=== PATIENT | female | born 1935 | race Caucasian/White ===

== ENCOUNTER → 2016-10-27 | Day surgery (SDC) | payer MEDICARE, OTHER ==
[~2016-10-27] VITALS: Ht 160 cm; Wt 56.8 kg
[~2016-10-27] MED LIST: ACETAMINOPHEN 1000 MG/100 ML VIAL IV ONE; ADVA100A INH; ALPR0.5T3 PO; BENEPOW8 PO; CHLORHEXIDINE GLUCONATE 2 % 1 PACK (2 CLOTHS) TOPICAL PRN; CLON0.1T PO; CRAN500C2 PO; DO NOT ADM ANY ANTICOAGULANT DRUGS PRN; EZET1TAB8 PO; FOLI400T PO; INSULIN HUMAN REGULAR 1,000 UNITS/10 ML VIAL SQ PRN; LACT1TAB2 PO; LACTATED RINGER'S 1000 ML INJ 1,000 ML IV ONE; LACTATED RINGER'S 1000 ML IV PRN; LIDOCAINE 1%/EPINEPHrine 1:100,000 SOLN 50 ML VIAL ONE; METOPROLOL TARTRATE 25 MG TAB PO PRN; MIDAZOLAM HCL 2 MG/2 ML VIAL ONE; MIDAZOLAM HCL 5 MG/5 ML VIAL ONE; MIRA33504 PO; NEXI40GR PO; ONDANSETRON HCL 4 MG/2 ML VIAL IV PUSH ONE; PLAV75TA29 PO; POTA-163 PO; POVIDONE IODINE 5% (ANTISEPSIS KIT) 4 APPLICATIONS EACH NARE PRN; PRED20 PO; PROBCAP4 PO; PROPOFOL 200 MG/20 ML AMP IV ONE; SODIUM CHLORID 0.9% 500 ML IV PRN; VANCOMYCIN HCL 1000 MG ON-CALL/NS 250 ML IV SCH; VITA20003 PO; fentaNYL CITRATE 250 MCG/5 ML AMP ONE
[2016-10-27 12:38] VITALS: BP 162/87; PULSE 55; RESP 16; TEMP 97.1; O2SAT 99
[2016-10-27 13:33] LABS: BASOPHIL # 0.1 TH/MM3 (0-0.2); BASOPHIL % 0.4 % (0.0-2.0); EOSINOPHIL % 0.2 % (0.0-4.0); HEMATOCRIT 36.2 % (35.0-46.0); HEMO FLAGS DIFF FINAL; LYMPH % 25.9 % (9.0-44.0); LYMPHOCYTE # 3.7 TH/MM3 (1.0-4.8); MEAN CELL VOLUME 83.9 FL (80.0-100.0); MEAN CORPUSCULAR HEMOGLOBIN 26.3 PG (27.0-34.0); MEAN CORPUSCULAR HGB CONC 31.4 % (32.0-36.0); MONO % 9.8 % (0.0-8.0); NEUT % 63.7 % (16.0-70.0); PLATELET COUNT 262 TH/MM3 (150-450); RED BLOOD COUNT 4.32 MIL/MM3 (4.00-5.30); RED CELL DISTRIBUTION WIDTH 15.3 % (11.6-17.2); WHITE BLOOD COUNT 14.2 TH/MM3 (4.0-11.0)
[2016-10-27 13:42] LABS: APTT (PATIENT) 23.2 SEC (24.3-30.1); PROTHROMBIN TIME - PATIENT 10.8 SEC (9.8-11.6)
[2016-10-27 13:50] LABS: BICARBONATE 30.1 MEQ/L (21.0-32.0); POTASSIUM 3.8 MEQ/L (3.5-5.1)
[2016-10-27 15:59] VITALS: BP 154/73; PULSE 60; RESP 16; TEMP 97.4; O2SAT 97
--- NOTE | 2016-10-28 17:04 | MP ---
cc: DENVER RAMIREZ DATE OF SURGERY October 27, 2016 PREOPERATIVE DIAGNOSIS Left cephalgia/visual dysfunction left eye - exclude granulomatous arteritis. POSTOPERATIVE DIAGNOSIS Left cephalgia/visual dysfunction left eye - exclude granulomatous arteritis. PROCEDURE Left temporal artery biopsy. SURGEON Marry Ramirez MD ANESTHESIA Local MAC DESCRIPTION OF PROCEDURE With the patient in the supine position, IV sedation was induced, the cervical spine rotated to the right, left facial area prepped with Betadine and draped in a sterile fashion. The skin and subcutaneous tissue along the course of the left superficial temporal artery was infiltrated with 0.5% Marcaine with epinephrine. A vertical incision was performed along the course of the superficial temporal artery from the anti-tragus cephalad approximately 4 cm. The temporal artery was circumferentially mobilized proximally and distally and ligated proximally and distally with 4-0 silk. The intervening 5 cm segment of artery was removed and submitted for histology. Strict hemostasis was assured. The incision was closed with continuous subcuticular 5-0 Monocryl, reinforced with Steri-Strips and covered with sterile gauze. Instrument, needle, sponge count correct x2. No operative complications. The patient returned to the recovery room in stable condition having tolerated procedure well. PREOPERATIVE NOTE On October MD JUAN Reeves/ /3:26 PM /5:01 PM
== END | disposition home or self-care (01) ==
LOC: HSDC 11:31
PROVIDERS: ATTEND Surgery Vascular Surgery
DX: M31.6 Other giant cell arteritis (principal); M54.16 Radiculopathy, lumbar region; G89.4 Chronic pain syndrome; I10 Essential (primary) hypertension
CPT/HCPCS: 00352; 37609; 80048; 85025; 85610; 85730; 88305; J0131; J2250; J2405; J3010; J3370; J7050; J7120; 88304

== ENCOUNTER → 2017-10-07 | Outpatient (CLI) | payer MEDICARE, OTHER ==
[~2017-10-07] MED LIST changes: -ACETAMINOPHEN 1000 MG/100 ML VIAL IV ONE; -CHLORHEXIDINE GLUCONATE 2 % 1 PACK (2 CLOTHS) TOPICAL PRN; -DO NOT ADM ANY ANTICOAGULANT DRUGS PRN; -INSULIN HUMAN REGULAR 1,000 UNITS/10 ML VIAL SQ PRN; -LACTATED RINGER'S 1000 ML INJ 1,000 ML IV ONE; -LACTATED RINGER'S 1000 ML IV PRN; -LIDOCAINE 1%/EPINEPHrine 1:100,000 SOLN 50 ML VIAL ONE; -METOPROLOL TARTRATE 25 MG TAB PO PRN; -MIDAZOLAM HCL 2 MG/2 ML VIAL ONE; -MIDAZOLAM HCL 5 MG/5 ML VIAL ONE; -ONDANSETRON HCL 4 MG/2 ML VIAL IV PUSH ONE; -POVIDONE IODINE 5% (ANTISEPSIS KIT) 4 APPLICATIONS EACH NARE PRN; -PROBCAP4 PO; -PROPOFOL 200 MG/20 ML AMP IV ONE; -SODIUM CHLORID 0.9% 500 ML IV PRN; -VANCOMYCIN HCL 1000 MG ON-CALL/NS 250 ML IV SCH; -fentaNYL CITRATE 250 MCG/5 ML AMP ONE
--- NOTE | 2017-10-07 22:54 | RADRPT ---
EXAM DATE/TIME: 10/07/2017 13:42 [place] COMPARISON: No previous studies available for comparison. INDICATIONS : Tremors with altered mental status. DOSE: 5.4 mCi Ioflupane Iodine-123 in 2.5 ml total volume MEDICATION(S): 130 mg Potasium Iodine PO one hour prior to injection SPECT IMAGIN.5 Hrs. IMAGING: SPECT/CT imaging with fusion was performed. RADIATION DOSE: 30.27 CTDIvol (mGy) MEDICAL HISTORY : Hypertension. SURGICAL HISTORY : Hysterectomy. Cholecystectomy. ENCOUNTER: Sequela ACUITY: >1 yr PAIN SCALE: 0/10 LOCATION: cranial TECHNIQUE: SPECT imaging of the brain was performed in sagittal, axial and coronal planes. Attenuation correctio n was performed with computed tomography and both the attenuation correction and non-attenuation fatmata ected data sets were reviewed. FINDINGS: There is normal biodistribution of radionuclide with symmetric crescent-shaped areas of activity are in the striatum which appears distinct relative to the surrounding brain tissue. CONCLUSION: Negative exam. Volodymyr Hearn MD on October 07, 2017 at 22:50 Board Certified Radiologist. This report was verified electronically.
== END ==
LOC: HRAD 08:52
PROVIDERS: ATTEND Specialist
DX: R41.82 Altered mental status, unspecified (principal); G25.2 Other specified forms of tremor
CPT/HCPCS: 78607; A9584